=== PATIENT | female | born 1995 | race American Indian/Alaskan Native ===

== ENCOUNTER 2023-11-20 13:41 | Inpatient (IN) | payer OTHER ==
[2023-11-20] MEDS ORDERED: Methylergonovine 0.2 MG/1 ML Amp IM PRN (14:16)
[2023-11-20] MEDS ORDERED: Tranexamic Acid IN NACL,ISO-OS 1,000 MG in Premix Bag 1 BAG IV PRN (14:16)
[2023-11-20] MEDS ORDERED: Sodium Chloride 0.9% 20 ML SDV IV PRN (14:16)
[2023-11-20] MEDS ORDERED: Misoprostol 200 MCG Tab PO PRN (14:16)
[2023-11-20] MEDS ORDERED: Carboprost Tromethamine 250 MCG/1 mL Vial IM PRN (14:16)
[2023-11-20] MEDS ORDERED: Terbutaline 1 MG/ML SDV SUBCUT PRN (14:16)
[2023-11-20] MEDS ORDERED: Lidocaine 1% 50 ML MDV INJECT PRN (14:16)
[2023-11-20] MEDS ORDERED: Butorphanol 2 MG/ML SDV IVPUSH PRN (14:16)
[2023-11-20] MEDS ORDERED: Sodium Chloride 0.9% 10 ML Syringe FLUSH PRN (14:16)
[2023-11-20] MEDS ORDERED: Water For Irrigation,Sterile 1,000 ML Container IRR PRN (14:16)
[2023-11-20] MEDS ORDERED: Sodium Chloride 0.9% 2.5 ML Syringe FLUSH PRN (14:16)
[2023-11-20] MEDS ORDERED: Oxytocin/0.9 % Sodium Chloride 30 UNIT/500 ML BAG IV SCH (14:30)
[2023-11-20] MEDS: Lactated Ringers 1,000 ML IV SCH (14:40)
[2023-11-20] MEDS: Oxytocin/0.9 % Sodium Chloride 30 UNIT/500 ML BAG IV SCH (14:46)
[2023-11-20 15:20] LABS: HEMATOCRIT 31.3 % (37.0-47.0); HEMOGLOBIN 10.5 g/dL (12.0-16.0); MEAN CORPUSCULAR HGB CONC 33.5 g/dL (32.0-36.0); MEAN CORPUSCULAR VOLUME 80.5 fL (83.0-99.0); PLATELET COUNT,PLT 300 K/uL (150-400); RED BLOOD CELL COUNT 3.89 M/uL (4.10-5.30); WHITE BLOOD CELL COUNT,WBC 6.91 K/uL (3.9-11.3)
[2023-11-20] MEDS ORDERED: Bupivacaine 0.5% 10 ML SDV ONE (16:43)
[2023-11-20] MEDS ORDERED: Ropivacaine HCl/PF 200 ML ONE (16:43)
[2023-11-20] MEDS ORDERED: Phenylephrine HCl In 0.9% NaCl 1 MG/10 ML Syringe ONE (16:43)
[2023-11-20] MEDS: Ropivacaine HCl/PF 400 MG in Premix Bag 1 BAG EPIDUR SCH (17:00)
[2023-11-20] MEDS ORDERED: ePHEDrine 50 MG/ML SDV IVPUSH PRN ×2 (17:11)
[2023-11-20] MEDS ORDERED: ePHEDrine 50 MG/ML SDV IM PRN (17:11)
[2023-11-20] MEDS ORDERED: Phenylephrine HCl In 0.9% NaCl 1 MG/10 ML Syringe IVPUSH PRN (17:11)
[2023-11-20] MEDS ORDERED: Bupivacaine 0.5% 10 ML SDV INJECT ONE (17:11)
[2023-11-20] MEDS ORDERED: dexmedeTOMIDine HCl 200 MCG/2 ML SDV EPIDUR SCH (17:15)
[2023-11-20] MEDS: Ondansetron 4 MG/2 ML SDV IVPUSH PRN (19:23)
[2023-11-20] MEDS: Phenylephrine HCl In 0.9% NaCl 1 MG/10 ML Syringe IVPUSH PRN (21:24)
[2023-11-20] MEDS ORDERED: oxyCODONE 5 MG Tab PO PRN (23:54)
[2023-11-20] MEDS ORDERED: Docusate Sodium 100 MG Cap PO PRN (23:54)
[2023-11-20] MEDS ORDERED: Lanolin 100% Cream 7 GM Tube TOP PRN (23:54)
[2023-11-21 00:26] LABS: PH,UMBILICAL ARTERIAL 7.132 (7.18-7.38); PH,UMBILICAL VENOUS 7.211 (7.25-7.45)
[2023-11-21] MEDS: Benzocaine/Menthol 20%-0.5% Spray 78 GM Cannister TOP PRN (02:03)
[2023-11-21] MEDS: Witch Hazel Medicated Pads 40/Jar TOP PRN (02:03)
[2023-11-21] MEDS: Ibuprofen 800 MG Tab PO PRN (02:03)
[2023-11-21 05:58] LABS: HEMOGLOBIN 9.7 g/dL (12.0-16.0)
[2023-11-21] MEDS: Acetaminophen 500 MG Tab PO PRN (10:30)
== END 2023-11-22 12:10 | disposition home or self-care (01) | DRG 806 ==
LOC: MW.OBCHECK 13:41 → MW.OB 13:42 → MW.OBCHECK 14:16 → OBSVTOIN 23:34 → MW.OB 11-21 03:01
PROVIDERS: ADMIT Obstetrics & Gynecology; ATTEND Obstetrics & Gynecology
PROC: 10E0XZZ Delivery of Products of Conception, External Approach (ICD-10-PCS; principal; 2023-11-20)
PROC: 3E0R3BZ Introduction of Anesthetic Agent into Spinal Canal, Percutaneous Approach (ICD-10-PCS; 2023-11-20)
PROC: 00HU33Z Insertion of Infusion Device into Spinal Canal, Percutaneous Approach (ICD-10-PCS; 2023-11-20)
DX: O42.02 Full-term premature rupture of membranes, onset of labor within 24 hours of rupture (principal); D62 Acute posthemorrhagic anemia; Z37.0 Single live birth; O98.32 Other infections with a predominantly sexual mode of transmission complicating childbirth; O99.355 Diseases of the nervous system complicating the puerperium; O99.344 Other mental disorders complicating childbirth; F41.9 Anxiety disorder, unspecified; Z3A.39 39 weeks gestation of pregnancy; A60.00 Herpesviral infection of urogenital system, unspecified; O69.81X0 Labor and delivery complicated by cord around neck, without compression, not applicable or unspecified; G56.01 Carpal tunnel syndrome, right upper limb; O90.81 Anemia of the puerperium
CPT/HCPCS: 01967; 36415; 51702; 59025; 59409; 59414; 82803; 84112; 85014; 85018; 85027; 86592; 86850; 86900; 86901; 93971-26-RT; 93971-RT; A9270-GY; J0665; J2371; J2405; J2590; J2795; J7120

== ENCOUNTER 2025-01-23 14:08 | Inpatient (IN) | payer BC, OTHER ==
[2025-01-23] MEDS ORDERED: Sodium Chloride 0.9% 2.5 ML Syringe FLUSH PRN (15:02)
[2025-01-23] MEDS ORDERED: Water For Irrigation,Sterile 1,000 ML Container IRR PRN (15:02)
[2025-01-23] MEDS ORDERED: Sodium Chloride 0.9% 10 ML Syringe FLUSH PRN (15:02)
[2025-01-23] MEDS ORDERED: Butorphanol 1 MG/ML SDV IVPUSH PRN (15:02)
[2025-01-23] MEDS ORDERED: Ondansetron 4 MG Tab.DIS PO PRN (15:02)
[2025-01-23] MEDS: Lactated Ringers 1,000 ML IV SCH (15:15)
[2025-01-23 15:41] LABS: MEAN PLATELET VOLUME 10.7 fL (9.4-12.3); NRBC ABSOLUTE 0.00 K/uL (0.00-0.02); NRBC PERCENT 0.0 /100WBC (0.0-0.2); PLATELET COUNT,PLT 278 K/uL (150-400); RED BLOOD CELL COUNT 3.90 M/uL (4.10-5.30); WHITE BLOOD CELL COUNT,WBC 10.89 K/uL (3.9-11.3)
[2025-01-23] MEDS: Terbutaline 1 MG/ML SDV SUBCUT ONE (15:45)
[2025-01-23] MEDS: Betamethasone Acetate/Betamethasone Sod Phosphate 6 MG/1 ML MDV IM SCH (15:55)
[2025-01-24 10:27] LABS: GROUP B STREP BY PCR NEGATIVE (NEGATIVE)
[2025-01-24] MEDS: Prenatal Multivitamin with Calcium/Folic Acid/Iron Tab PO SCH (17:24)
== END 2025-01-24 16:45 | disposition home or self-care (01) | DRG 833 ==
LOC: MW.OBCHECK 14:08 → MW.OB 14:09 → MW.OBCHECK 15:13 → MW.OB 15:15
PROVIDERS: ADMIT Obstetrics & Gynecology; ATTEND Obstetrics & Gynecology
DX: O99.891 Other specified diseases and conditions complicating pregnancy (principal); N93.0 Postcoital and contact bleeding; Z3A.34 34 weeks gestation of pregnancy
CPT/HCPCS: 36415; 59025; 76805; 76805-26; 76819; 76819-26; 85027; 86592; 86850; 86900; 86901; 87653; 99221; 99238; A9270-GY; J0702; J3105; J7120

== ENCOUNTER 2025-02-04 08:44 | Inpatient (IN) | payer OTHER ==
[2025-02-04] MEDS ORDERED: Butorphanol 1 MG/ML SDV IVPUSH PRN (09:32)
[2025-02-04] MEDS ORDERED: Carboprost Tromethamine 250 MCG/1 mL Vial IM PRN (09:32)
[2025-02-04] MEDS ORDERED: Sodium Chloride 0.9% 2.5 ML Syringe FLUSH PRN (09:32)
[2025-02-04] MEDS ORDERED: Sodium Chloride 0.9% 10 ML Syringe FLUSH PRN (09:32)
[2025-02-04] MEDS ORDERED: Water For Irrigation,Sterile 1,000 ML Container IRR PRN (09:32)
[2025-02-04] MEDS: Lactated Ringers 1,000 ML IV SCH (10:03)
[2025-02-04 10:12] LABS: MEAN PLATELET VOLUME 10.8 fL (9.4-12.3); NRBC ABSOLUTE 0.00 K/uL (0.00-0.02); NRBC PERCENT 0.0 /100WBC (0.0-0.2); PLATELET COUNT,PLT 286 K/uL (150-400); RED BLOOD CELL COUNT 3.75 M/uL (4.10-5.30); WHITE BLOOD CELL COUNT,WBC 9.40 K/uL (3.9-11.3)
[2025-02-04] MEDS ORDERED: dexmedeTOMIDine HCl 200 MCG/2 ML SDV ONE (11:17)
[2025-02-04] MEDS: Ropivacaine HCl/PF 200 ML ONE (11:31)
[2025-02-04] MEDS ORDERED: ePHEDrine 50 MG/ML SDV IVPUSH PRN (11:41)
[2025-02-04] MEDS ORDERED: dexmedeTOMIDine HCl 200 MCG/2 ML SDV EPIDUR SCH (11:45)
[2025-02-04] MEDS ORDERED: Ropivacaine HCl/PF 400 MG in Premix Bag 1 BAG EPIDUR SCH (11:45)
[2025-02-04] MEDS: Ondansetron 4 MG Tab.DIS PO PRN (13:37)
[2025-02-04] MEDS: Oxytocin/0.9 % Sodium Chloride 30 UNIT/500 ML BAG IV SCH (14:42)
[2025-02-04] MEDS ORDERED: Witch Hazel Medicated Pads 40/Jar TOP PRN (14:57)
[2025-02-04] MEDS ORDERED: Benzocaine/Menthol 20%-0.5% Spray 78 GM Cannister TOP PRN (14:57)
[2025-02-04] MEDS ORDERED: Lanolin 100% Cream 7 GM Tube TOP PRN (14:57)
[2025-02-04] MEDS ORDERED: Aluminum Hydroxide/Magnesium Hydroxide/Simethicone Susp 30 ML Cup PO PRN (14:57)
[2025-02-04 15:33] LABS: PH,UMBILICAL ARTERIAL 7.31 (7.18-7.38); PH,UMBILICAL VENOUS 7.35 (7.25-7.45)
[2025-02-05 06:06] LABS: BASOPHILS ABSOLUTE AUTO 0.05 K/uL (0.00-0.20); BASOPHILS PERCENT AUTO 0.4 % (0.0-1.0); EOSINOPHILS ABSOLUTE AUTO 0.11 K/uL (0.00-0.45); EOSINOPHILS PERCENT AUTO 1.0 % (0.0-6.0); IMMATURE GRAN ABSOLUTE AUTO 0.02 K/uL (0.00-0.05); IMMATURE GRAN PERCENT AUTO 0.2 % (0.0-0.4); LYMPHOCYTES ABSOLUTE AUTO 2.66 K/uL (1.00-4.80); LYMPHOCYTES PERCENT AUTO 23.3 % (24.0-44.0); MEAN PLATELET VOLUME 10.9 fL (9.4-12.3); MONOCYTES ABSOLUTE AUTO 0.66 K/uL (0.00-0.80); MONOCYTES PERCENT AUTO 5.8 % (0.0-8.0); NEUTROPHILS ABSOLUTE AUTO 7.94 K/uL (1.80-7.70); NEUTROPHILS PERCENT AUTO 69.3 % (41.0-71.0); NRBC ABSOLUTE 0.02 K/uL (0.00-0.02); NRBC PERCENT 0.2 /100WBC (0.0-0.2); PLATELET COUNT,PLT 290 K/uL (150-400); RED BLOOD CELL COUNT 3.98 M/uL (4.10-5.30); WHITE BLOOD CELL COUNT,WBC 11.44 K/uL (3.9-11.3)
== END 2025-02-06 09:40 | disposition home or self-care (01) | DRG 806 ==
LOC: MW.OBCHECK 08:44 → MW.OB 08:49 → MW.OBCHECK 15:07 → OBSVTOIN 15:12 → MW.OB 15:12
PROVIDERS: ADMIT Obstetrics & Gynecology; ATTEND Obstetrics & Gynecology
PROC: 10E0XZZ Delivery of Products of Conception, External Approach (ICD-10-PCS; principal; 2025-02-04)
PROC: 3E0R3BZ Introduction of Anesthetic Agent into Spinal Canal, Percutaneous Approach (ICD-10-PCS; 2025-02-04)
DX: O60.13X0 Preterm labor second trimester with preterm delivery third trimester, not applicable or unspecified (principal); O98.52 Other viral diseases complicating childbirth; Z37.0 Single live birth; O99.02 Anemia complicating childbirth; O77.0 Labor and delivery complicated by meconium in amniotic fluid; O40.3XX0 Polyhydramnios, third trimester, not applicable or unspecified; O69.1XX0 Labor and delivery complicated by cord around neck, with compression, not applicable or unspecified; F17.200 Nicotine dependence, unspecified, uncomplicated; Z98.890 Other specified postprocedural states; Z88.8 Allergy status to other drugs, medicaments and biological substances; Z3A.36 36 weeks gestation of pregnancy; Z79.899 Other long term (current) drug therapy
CPT/HCPCS: 01967; 36415; 51702; 59025; 59409; 76815; 76815-26; 82803; 85025; 85027; 86592; 86850; 86900; 86901; 86920; A9270-GY; J0665; J2371; J2590; J2795; J7120